=== PATIENT | female | born 2000 | race Caucasian/White ===

== ENCOUNTER 2022-12-26 08:07 | Emergency (ER) | payer OTHER ==
[2022-12-26] VITALS (45 sets, daily range): BP systolic 76–128; BP diastolic 41–81
[~2022-12-26] VITALS: Ht 160 cm; Wt 72.1 kg
[2022-12-26] MEDS ORDERED: LEXAPRO10 MG PO (08:22)
[2022-12-26 08:33] LABS: BASO% 0.2 % (0-3); EOS% 1.2 % (0-8); HEMATOCRIT 45.1 % (37.0-47.0); HEMOGLOBIN 15.8 g/dl (12.0-16.0); LYMPH% 40.7 % (15-41); MEAN CELL VOLUME 88.6 fL CALC (80.0-100.0); NEUT% 48.9 % (42-76); RED BLOOD COUNT 5.09 mill/uL (4.20-5.60); RED CELL DISTRI WIDTH 11.7 % (11.5-15.5)
[2022-12-26] MEDS ORDERED: PREDNISONE50 MG PO ×2 (09:01→09:02)
[2022-12-26] MEDS ORDERED: EPIPEN 2-P0.3 MG/0.3 IM ×2 (09:01→09:02)
[2022-12-26] MEDS ORDERED: ALLERGY RELF10 M3 PO ×2 (09:01→09:02)
[2022-12-26 09:09] LABS: ALBUMIN 4.6 g/dL (3.2-5.0); ALKALINE PHOSPHATASE 84 u/l (38-126); ANION GAP 17 (6-22 (CALC)); BILIRUBIN, TOTAL 2.1 mg/dL (0.02-1.3); BUN 12 mg/dL (7-17); BUN/CREATININE RATIO 16 (12-20 (CALC)); CARBON DIOXIDE 18 mmol/l (22-30); CHLORIDE 106 mmol/l (95-108); CREATININE 0.8 mg/dL (0.5-1.0); GFR FOR AFR.AMER. > 60 ML/MIN (>=60 (CALC)); GFR OTHER RACES > 60 ML/MIN (>=60 (CALC)); POTASSIUM 3.6 mmol/l (3.5-5.1); SGOT/AST 33 u/l (14-36); SODIUM 137 mmol/l (137-146); TOTAL PROTEIN 7.6 g/dL (6.3-8.2)
== END 2022-12-26 14:15 | disposition home or self-care (01) | DRG 916 ==
LOC: ED 08:07
PROVIDERS: Family Medicine
DX: T78.2XXA Anaphylactic shock, unspecified, initial encounter (principal); T63.91XA Toxic effect of contact with unspecified venomous animal, accidental (unintentional), initial encounter